=== PATIENT | female | born 1995 | race Caucasian/White ===

== ENCOUNTER 2020-04-05 17:26 | Outpatient (CLI) | payer OTHER ==
[2020-04-05 18:11] LABS: APPEARANCE,URINE CLEAR; BILIRUBIN,URINE NEGATIVE (NEGATIVE); COLOR,URINE STRAW; GLUCOSE, URINE NEGATIVE (NEGATIVE); KETONES,URINE NEGATIVE (NEGATIVE); LEUKOCYTE ESTERASE,URINE MODERATE (NEGATIVE); NITRITE,URINE NEGATIVE (NEGATIVE); PROTEIN,URINE NEGATIVE (NEGATIVE); URINE SPECIFIC GRAVITY 1.002; UROBILINOGEN,URINE NEGATIVE mg/dL (<2.0)
[2020-04-05 18:28] LABS: URINE BARBITURATES SCREEN NEGATIVE; URINE BENZODIAZEPINES SCREEN NEGATIVE; URINE MARIJUANA (THC) SCREEN NEGATIVE; URINE METHADONE SCREEN NEGATIVE; URINE PHENCYCLIDINE SCREEN NEGATIVE
[2020-04-05 18:35] LABS: URINE AMPHETAMINES SCREEN NEGATIVE
[2020-04-05 18:39] LABS: URINE COCAINE SCREEN NEGATIVE
[2020-04-05 19:02] LABS: HEMATOCRIT 30.2 % (36.0-47.0); HEMOGLOBIN 10.9 g/dL (12.0-15.5); MEAN CORPUSCULAR HEMOGLOBIN 30.8 pg (27.0-33.4); MEAN CORPUSCULAR VOLUME 86 fl (80-97); PLATELET COUNT 230 10^3/uL (150-450); RED BLOOD COUNT 3.53 10^6/uL (3.72-5.28); WHITE BLOOD COUNT 9.5 10^3/uL (4.0-10.5)
[2020-04-05 19:33] LABS: ALBUMIN 3.6 g/dL (3.5-5.0); ALKALINE PHOSPHATASE 138 U/L (38-126); ANION GAP 7 (5-19); ASPARTATE AMINO TRANSFERASE 17 U/L (14-36); BILIRUBIN,TOTAL 0.3 mg/dL (0.2-1.3); BLOOD UREA NITROGEN 2 mg/dL (7-20); CALCIUM 9.6 mg/dL (8.4-10.2); CARBON DIOXIDE 25 mmol/L (22-30); CHLORIDE 103 mmol/L (98-107); GLUCOSE 81 mg/dL (75-110); POTASSIUM 3.2 mmol/L (3.6-5.0); TOTAL PROTEIN 6.5 g/dL (6.3-8.2); URIC ACID 4.6 mg/dL (2.5-6.2)
[2020-04-05] MEDS ORDERED: ACETAMINOPHEN WITH CODEINE #3 TABLET PO ONE (19:38)
[2020-04-05] MEDS ORDERED: ACETAMINOPHEN WITH CODEINE #3 TABLET ONE (19:44)
[2020-04-05 20:09] LABS: UR PRO/CREAT RATIO RESULT 1.4 mg/mg (0.0-0.2); URINE CREATININE 12.7 mg/dL (16-327); URINE PROTEIN 18.1 mg/dL (<12)
[2020-04-05] MEDS ORDERED: HYDROXYZINE PAMOATE 50 MG CAPSULE PO ONE (20:29)
[2020-04-05] MEDS ORDERED: HYDROXYZINE PAMOATE 25 MG CAPSULE PO ONE (20:30)
[2020-04-05] MEDS ORDERED: HYDROXYZINE PAMOATE 50 MG CAPSULE ONE (20:31)
--- NOTE | 2020-04-05 22:36 | Non Stress Test Report ---
Non Stress Test Datetime Report Generated by CPN: 04/05/2020 22:36 DEMOGRAPHIC EGA NST: 35.4 INDICATION Indication for Study (NST) Other: labor check MONITORING Monitor Explained: Monitor Explained; Test Explained; Patient Verbalized Understanding Time on Monitor: 04/05/2020 17:51 Time off Monitor: 04/05/2020 21:34 NST Duration: 223 NST INTERVENTIONS NST Interventions: PO Hydration Physician Notified NST: Dr. Zazueta BABY A: [id number] BABY A Movement : Present Contraction Frequency : irregular FHR Baseline : 125-135 Accelerations : 15X15 Decelerations : None Variability : Moderate 6-25bpm NST Review: Meets Criteria for Reactive NST NST Review and Verified By : STEPHANIE Henson Results: Reactive NST REPORT Report Trigger: Send Report
== END 2020-04-05 21:46 | disposition home or self-care (01) ==
LOC: LC 17:26
PROVIDERS: ATTEND Student in an Organized Health Care Education/Training Program
DX: Z34.93 Encounter for supervision of normal pregnancy, unspecified, third trimester (principal)
CPT/HCPCS: 36415; 59025; 80053; 80307; 81005; 82570; 83615; 84156; 84550; 85027

== ENCOUNTER 2020-04-06 20:33 | Outpatient (CLI) | payer OTHER ==
[2020-04-06 21:24] LABS: 24 HOUR URINE PROTEIN RESULT 535 mg/day (42-225)
== END 2020-04-06 22:16 | disposition home or self-care (01) ==
LOC: LC 20:33
PROVIDERS: ATTEND Obstetrics & Gynecology
DX: O16.3 Unspecified maternal hypertension, third trimester (principal); Z3A.35 35 weeks gestation of pregnancy
CPT/HCPCS: 59025; 84156

== ENCOUNTER 2020-04-08 17:48 | Inpatient (IN) | payer OTHER ==
[2020-04-08] MEDS ORDERED: RINGERS SOLUTION,LACTATED 300 ML IV ONE (18:01)
[2020-04-08] MEDS ORDERED: MAG HYDROX/AL HYDROX/SIMETH SUSP 30 ML UDCUP PO PRN (18:01)
[2020-04-08] MEDS ORDERED: ZOLPIDEM TARTRATE 5 MG TABLET PO PRN (18:01)
[2020-04-08] MEDS ORDERED: PENICILLIN G POTASSIUM 5,000,000 UNIT in DEXTROSE 5%-WATER 100 ML IV ONE (18:01)
[2020-04-08] MEDS ORDERED: DINOPROSTONE 10 MG VAGINAL INSERT.SR PV ONE (18:01)
[2020-04-08] MEDS ORDERED: RINGERS SOLUTION,LACTATED 1,000 ML IV PRN ×2 (18:01)
[2020-04-08] MEDS ORDERED: RINGERS SOLUTION,LACTATED 1,000 ML IV ONE (18:01)
[2020-04-08] MEDS ORDERED: ACETAMINOPHEN 325 MG TABLET PO PRN (18:01)
[2020-04-08] MEDS ORDERED: BETAMET ACET/BETAMET NA INJ 6 MG/1 ML ONE (18:20)
[2020-04-08 18:31] LABS: APPEARANCE,URINE CLEAR; BILIRUBIN,URINE NEGATIVE (NEGATIVE); COLOR,URINE YELLOW; GLUCOSE, URINE NEGATIVE (NEGATIVE); KETONES,URINE TRACE mg/dL (NEGATIVE); LEUKOCYTE ESTERASE,URINE MODERATE (NEGATIVE); NITRITE,URINE NEGATIVE (NEGATIVE); PROTEIN,URINE NEGATIVE (NEGATIVE); URINE SPECIFIC GRAVITY 1.005; UROBILINOGEN,URINE NEGATIVE mg/dL (<2.0)
[2020-04-08 18:34] LABS: ABSOLUTE LYMPHOCYTES (AUTO) 1.2 10^3/uL (0.5-4.7); ABSOLUTE MONOCYTES (AUTO) 0.7 10^3/uL (0.1-1.4); ABSOLUTE NEUT (AUTO) 9.9 10^3/uL (1.7-8.2); BASOPHILS % (AUTO) 0.2 % (0-2); EOSINOPHILS % (AUTO) 0.1 % (0-6); HEMATOCRIT 29.9 % (36.0-47.0); HEMOGLOBIN 10.7 g/dL (12.0-15.5); LYMPHOCYTES % (AUTO) 10.2 % (13-45); MEAN CORPUSCULAR HEMOGLOBIN 30.5 pg (27.0-33.4); MEAN CORPUSCULAR HGB CONC 35.8 g/dL (32.0-36.0); MEAN CORPUSCULAR VOLUME 85 fl (80-97); MONOCYTES % (AUTO) 5.6 % (3-13); PLATELET COUNT 264 10^3/uL (150-450); RED BLOOD COUNT 3.51 10^6/uL (3.72-5.28); RED CELL DISTRIBUTION WIDTH 12.9 % (11.5-14.0); SEGMENTED NEUTROPHILS % (AUTO) 83.9 % (42-78); TOTAL CELLS COUNTED % (AUTO) 100 %; WHITE BLOOD COUNT 11.8 10^3/uL (4.0-10.5)
[2020-04-08 18:37] LABS: URINE AMPHETAMINES SCREEN NEGATIVE; URINE BARBITURATES SCREEN NEGATIVE; URINE BENZODIAZEPINES SCREEN NEGATIVE; URINE COCAINE SCREEN NEGATIVE; URINE MARIJUANA (THC) SCREEN NEGATIVE; URINE METHADONE SCREEN NEGATIVE; URINE PHENCYCLIDINE SCREEN NEGATIVE
[2020-04-08 18:52] LABS: ALBUMIN 3.5 g/dL (3.5-5.0); ALKALINE PHOSPHATASE 131 U/L (38-126); ANION GAP 10 (5-19); ASPARTATE AMINO TRANSFERASE 17 U/L (14-36); BILIRUBIN,TOTAL 0.4 mg/dL (0.2-1.3); BLOOD UREA NITROGEN 4 mg/dL (7-20); CALCIUM 9.3 mg/dL (8.4-10.2); CARBON DIOXIDE 23 mmol/L (22-30); CHLORIDE 101 mmol/L (98-107); GLUCOSE 98 mg/dL (75-110); TOTAL PROTEIN 6.3 g/dL (6.3-8.2); URIC ACID 5.3 mg/dL (2.5-6.2)
[2020-04-08] MEDS ORDERED: OXYTOCIN 10 UNIT/ML VIAL ONE (19:29)
[2020-04-08] MEDS ORDERED: MISOPROSTOL 0.2 MG TABLET ONE (19:29)
[2020-04-08] MEDS ORDERED: OXYTOCIN/0.9 % SODIUM CHLORIDE 0 UNIT/0 ML RTUINJ ONE (19:29)
[2020-04-08] MEDS ORDERED: LIDOCAINE 1% INJ-PF (10 MG/ML) 30 ML SDV ONE (19:29)
[2020-04-08 19:42] LABS: ALBUMIN 3.5 g/dL (3.5-5.0); ALKALINE PHOSPHATASE 121 U/L (38-126); ANION GAP 8 (5-19); ASPARTATE AMINO TRANSFERASE 17 U/L (14-36); BILIRUBIN,TOTAL 0.4 mg/dL (0.2-1.3); BLOOD UREA NITROGEN 4 mg/dL (7-20); CALCIUM 9.3 mg/dL (8.4-10.2); CARBON DIOXIDE 25 mmol/L (22-30); CHLORIDE 101 mmol/L (98-107); GLUCOSE 91 mg/dL (75-110); TOTAL PROTEIN 6.2 g/dL (6.3-8.2)
[2020-04-08] MEDS ORDERED: DINOPROSTONE 10 MG VAGINAL INSERT.SR ONE (19:55)
[2020-04-08] MEDS ORDERED: PENICILLIN G POTASSIUM 2,500,000 UNIT in DEXTROSE 5%-WATER 50 ML IV SCH (22:04)
[2020-04-09] MEDS ORDERED: MAG HYDROX/AL HYDROX/SIMETH SUSP 30 ML UDCUP ONE (04:42)
[2020-04-09 06:56] LABS: ABSOLUTE LYMPHOCYTES (AUTO) 0.7 10^3/uL (0.5-4.7); ABSOLUTE MONOCYTES (AUTO) 0.2 10^3/uL (0.1-1.4); ABSOLUTE NEUT (AUTO) 10.5 10^3/uL (1.7-8.2); HEMATOCRIT 32.7 % (36.0-47.0); HEMOGLOBIN 11.6 g/dL (12.0-15.5); LYMPHOCYTES % (AUTO) 6.3 % (13-45); MEAN CORPUSCULAR HEMOGLOBIN 30.4 pg (27.0-33.4); MEAN CORPUSCULAR HGB CONC 35.4 g/dL (32.0-36.0); MEAN CORPUSCULAR VOLUME 86 fl (80-97); PLATELET COUNT 277 10^3/uL (150-450); RED BLOOD COUNT 3.82 10^6/uL (3.72-5.28); RED CELL DISTRIBUTION WIDTH 12.8 % (11.5-14.0); SEGMENTED NEUTROPHILS % (AUTO) 91.7 % (42-78); TOTAL CELLS COUNTED % (AUTO) 100 %; WHITE BLOOD COUNT 11.4 10^3/uL (4.0-10.5)
--- NOTE | 2020-04-09 08:38 | Admission Physical ---
Datetime Report Generated by CPN: 04/09/2020 08:37 CURRENT ADMISSION Chief Complaint: Sent from OB Office for Evaluation and Treatment - Please Specify Indication for Induction: PreEclampsia Indication for Induction- Other: sent from office yesterday for severe range BPs 160s/90s +headache, Brisk DTRs 24*urine >500 earlier this week Admit Impression : , Intrauterine ; No Active Labor Admit Plan: Admit to Unit; Initiate Labor Induction Protocol Admit Plan- Other: Circumvallate Placenta GBS unknown ALLERGIES Medication Allergies: Yes Medication Allergies: clavulanic acid/Hives (04/08/2020); cefprozil/Hives (04/08/2020); amoxicillin/Hives (04/08/2020) Latex: No Latex Allergies OBSTETRICAL HISTORY EDC: 05/06/2020 00:00 : 4 Para: 3 Livin Gestational Diabetes: No Rh Sensitization: No Incompetent Cervix: No RAMONA: No Infertility: No ART Treatment: No Uterine Anomaly: No IUGR: No Hx Previous C/S: No Macrosomia: No Hx Loss/Stillborn: No PIH: No Hx : No Placenta Previa/Abruption: No Depression/PP Depression: Yes PTL/PROM: Yes Post Hemorrhage: No Current Procedures: Ultrasound; NST Obstetrical History Comments: G1-2013, 334.5 weeks, female, vaginal, PROM G2-2016, 39 weeks, male, vaginal, GHTN G3-39 weeks, male, vaginalGHTN G4-Current SEE RECORDS Alcohol: No MEDICAL HISTORY Diabetes: No Blood Transfusion: No Pulmonary Disease (Asthma, TB): No Breast Disease: No Hypertension: Yes Pl Sql [employer] Surgery: No Heart Disease: No Hosp/Surgery: Yes Autoimmune Disorder: No Anesthetic Complications: No Kidney Disease: No Abnormal Pap Smear: Yes Neuro/Epilepsy: No Psychiatric Disorders: No Other Medical Diseases: No Hepatitis/Liver Disease: No Significant Family History: No Varicosities/Phlebitis: No Trauma/Violence : No Thyroid Dysfunction: No Medical History Comments: Hx of HPV, Hx of chlamydia, Childbirth x3, gest HTNx2, PROM INFECTIOUS HISTORY Gonorrhea: No Genital Herpes: No Chlamydia: Yes Tuberculosis: No Syphilis: No Hepatitis: No HIV/AIDS Exposure: No Rash or Viral Illness: No HPV: Yes PHYSICAL EXAM General: Normal HEENT: Normal Neurologic: Normal Thyroid: Normal Heart: Normal Lungs: Normal Breast: Normal Back: Normal Abdomen: Normal Genitourinary Exam: Normal Extremities: Normal DTRs: Normal Pelvic Type: Adequate Physical Exam Comments: 1cm per nursing, cervidil was placed last night Vital Signs: Reviewed FETUS A EGA: 36.1 Monitoring: External US FHR- Baseline: 120 Variability: Moderate 6-25bpm Accelerations: 15X15 FHR Category: Category I Presentation: Vertex Admit Comment: Vancomycin for GBS prophy, culture collected yesterday--pending INFORMED CONSENT Assignment: Amanda Zazueta MD Signature: with User ID: [email or web address] : with User ID: [email or web address]
[2020-04-09] MEDS ORDERED: VANCOMYCIN HCL INJ 1000 MG VIAL ONE ×2 (08:44→22:00)
[2020-04-09] MEDS ORDERED: OXYTOCIN/0.9 % SODIUM CHLORIDE 30 UNIT/500 ML RTUINJ ONE (08:45)
[2020-04-09] MEDS ORDERED: MAGNESIUM SULFATE 4 GM/100 ML RTUPB IV ONE (09:04)
[2020-04-09] MEDS: VANCOMYCIN HCL 1,000 MG in DEXTROSE 5%-WATER 250 ML IV SCH ×2 (09:30→22:18)
[2020-04-09 09:45] LABS: INTERNATIONAL RATION (INR) 0.98
[2020-04-09] MEDS ORDERED: BUPIVACAINE HCL 0.25 % INJ/PF (2.5 MG/1 ML) 30 ML VIAL ONE (09:52)
[2020-04-09] MEDS ORDERED: EPHEDRINE SULFATE INJ 50 MG/1 ML AMPULE ONE (09:52)
[2020-04-09] MEDS ORDERED: FENTANYL/BUPIVACAINE/NS/PF 300 MCG/150 ML RTUINJ EPI ONE (09:52)
[2020-04-09 10:01] LABS: ALBUMIN 3.8 g/dL (3.5-5.0); ALKALINE PHOSPHATASE 153 U/L (38-126); ANION GAP 12 (5-19); ASPARTATE AMINO TRANSFERASE 18 U/L (14-36); BILIRUBIN,TOTAL 0.6 mg/dL (0.2-1.3); BLOOD UREA NITROGEN 3 mg/dL (7-20); CALCIUM 9.4 mg/dL (8.4-10.2); CARBON DIOXIDE 20 mmol/L (22-30); CHLORIDE 103 mmol/L (98-107); GLUCOSE 115 mg/dL (75-110); POTASSIUM 3.4 mmol/L (3.6-5.0); TOTAL PROTEIN 6.7 g/dL (6.3-8.2)
[2020-04-09] MEDS ORDERED: TERBUTALINE SULFATE INJ/PF 1 MG/1 ML SDV SUBCUT ONE (10:05)
[2020-04-09] MEDS ORDERED: TERBUTALINE SULFATE INJ/PF 1 MG/1 ML SDV ONE (10:15)
[2020-04-09 11:14] LABS: CHLAM PCR NOT DETECTED (NOT DETECT)
[2020-04-09] MEDS ORDERED: OXYTOCIN/0.9 % SODIUM CHLORIDE 30 UNIT/500 ML RTUINJ IV PRN ×2 (12:51→23:05)
[2020-04-09] MEDS ORDERED: BETAMET ACET/BETAMET NA INJ 6 MG/1 ML IM ONE (19:43)
[2020-04-09] MEDS ORDERED: BETAMET ACET/BETAMET NA INJ 6 MG/1 ML ONE (19:46)
[2020-04-09] MEDS ORDERED: GLYCERIN/WITCH HAZEL LEAF 1 EACH MED..WIPE TP PRN (23:05)
[2020-04-09] MEDS ORDERED: PROMETHAZINE HCL 25 MG SUPP.RECT PR PRN (23:05)
[2020-04-09] MEDS ORDERED: PROMETHAZINE HCL 25 MG TABLET PO PRN (23:05)
[2020-04-09] MEDS ORDERED: PROMETHAZINE HCL INJ 25 MG/1 ML VIAL IV PRN (23:05)
[2020-04-09] MEDS ORDERED: ACETAMINOPHEN 325 MG TABLET PO PRN (23:05)
[2020-04-09] MEDS ORDERED: ZOLPIDEM TARTRATE 5 MG TABLET PO PRN (23:05)
[2020-04-09] MEDS ORDERED: ACETAMINOPHEN WITH CODEINE #3 TABLET PO PRN ×2 (23:05)
[2020-04-09] MEDS ORDERED: DIPH/PERTUSS(ACELL)/TETANUS VAC/PF 0.5 ML SYR (>=10YO) IM PRN (23:05)
[2020-04-09] MEDS ORDERED: MISOPROSTOL 0.2 MG TABLET PR PRN (23:05)
[2020-04-09] MEDS ORDERED: NA PHOS,M-B/NA PHOS,DI-BA (ADULT) 133 ML ENEMA PR PRN (23:05)
[2020-04-09] MEDS ORDERED: BENZOCAINE/MENTHOL AEROSOL SPRAY 56 ML TOP PRN (23:05)
[2020-04-09] MEDS ORDERED: MEASLES,MUMPS&RUBELLA VACC/PF 0.5 ML VIAL SUBCUT PRN (23:05)
[2020-04-09] MEDS ORDERED: DIPHENHYDRAMINE HCL 25 MG CAPSULE PO PRN (23:05)
[2020-04-09] MEDS ORDERED: DIBUCAINE 1% OINTMENT 28 GM TP PRN (23:05)
[2020-04-09] MEDS ORDERED: PSEUDOEPHEDRINE HCL 30 MG TABLET PO PRN (23:05)
[2020-04-09] MEDS ORDERED: MAGNESIUM HYDROXIDE SUSP 30 ML UDCUP PO PRN (23:05)
[2020-04-10] MEDS: FAMOTIDINE 20 MG TABLET PO SCH ×3 (02:40→21:39)
[2020-04-10] MEDS: IBUPROFEN 800 MG TABLET PO SCH ×3 (05:43→21:38)
[2020-04-10 07:53] LABS: HEMATOCRIT 30.7 % (36.0-47.0); HEMOGLOBIN 10.8 g/dL (12.0-15.5); MEAN CORPUSCULAR HEMOGLOBIN 29.7 pg (27.0-33.4); MEAN CORPUSCULAR VOLUME 85 fl (80-97); PLATELET COUNT 331 10^3/uL (150-450); RED BLOOD COUNT 3.62 10^6/uL (3.72-5.28); WHITE BLOOD COUNT 17.8 10^3/uL (4.0-10.5)
[2020-04-10] MEDS: FERROUS SULFATE 325 MG TABLET PO SCH ×2 (09:20→18:06)
[2020-04-10] MEDS: PRENATAL VITAMIN W DHA CAPSULE PO SCH (09:20)
[2020-04-10] MEDS: SENNOSIDES/DOCUSATE 8.6-50 MG 1 EACH TABLET PO SCH (09:20)
[2020-04-10] MEDS: DOCUSATE SODIUM 100 MG CAPSULE PO SCH ×2 (09:20→18:06)
--- NOTE | 2020-04-10 09:56 | PDOC PROGRESS REPORT ---
Subjective-OB Progress Note for:: 04/10/20 Subjective: Pt doing well, no concerns. She reports light bleeding, reg diet and voiding without difficulty. Physical Exam (OB) Vital Signs: Temp Pulse Resp BP Pulse Ox 97.8 F 65 18 140/81 H 100 04/10/20 07:26 04/10/20 08:05 04/10/20 07:26 04/10/20 08:05 04/10/20 07:26 Intake & Output 04/09/20 04/10/20 04/11/20 06:59 06:59 06:59 Intake Total 250 Balance 250 Weight 89.6 kg - PIH/Pre-Eclampsia DTR's: 2 + Clonus: Negative Headache: Absent Epigastric Pain: No Visual Changes: No - Lochia Lochia Amount: Small 10-25 ml Lochia Color: Rubra/Red - Abdomen Description: Soft Hernia Present: No Fundal Description: Firm, Midline Fundal Height: u/3 - u/4 Objective-Diagnostic Laboratory: 04/10/20 07:30 04/09/20 09:26 04/09/20 04/10/20 09:26 07:30 WBC 17.8 H RBC 3.62 L Hgb 10.8 L Hct 30.7 L MCV 85 MCH 29.7 MCHC 35.0 RDW 13.0 Plt Count 331 Sodium 134.7 L Potassium 3.4 L Chloride 103 Carbon Dioxide 20 L Anion Gap 12 BUN 3 L Creatinine 0.43 L Est GFR ( Amer) > 60 Glucose 115 H Calcium 9.4 Total Bilirubin 0.6 AST 18 Alkaline Phosphatase 153 H Total Protein 6.7 Albumin 3.8 Assessment and Plan(PN) - Assessment and Plan (1) Breech malpresentation successfully converted to cephalic presentation Qualifiers: Fetus number: single or unspecified fetus Qualified Code(s): O32.1XX0 - Maternal care for breech presentation, not applicable or unspecified Is this a current diagnosis for this admission?: Yes (2) Severe pre-eclampsia Qualifiers: Trimester: third trimester Qualified Code(s): O14.13 - Severe pre- eclampsia, third trimester Is this a current diagnosis for this admission?: Yes (3) Unstable lie of fetus Qualifiers: Fetus number: single or unspecified fetus Qualified Code(s): O32.0XX0 - M aternal care for unstable lie, not applicable or unspecified Is this a current diagnosis for this admission?: Yes - Time Spent with Patient Time with patient: Less than 15 minutes Medications reviewed and adjusted accordingly: Yes - Disposition Anticipated Discharge: Home Within: within 24 hours
[2020-04-11] MEDS: IBUPROFEN 800 MG TABLET PO SCH ×3 (05:37→21:20)
[2020-04-11] MEDS ORDERED: NIFEDIPINE 30 MG TAB.ER.24 PO SCH (09:00)
[2020-04-11] MEDS: SENNOSIDES/DOCUSATE 8.6-50 MG 1 EACH TABLET PO SCH (09:23)
[2020-04-11] MEDS: FERROUS SULFATE 325 MG TABLET PO SCH ×2 (09:23→17:11)
[2020-04-11] MEDS: DOCUSATE SODIUM 100 MG CAPSULE PO SCH ×2 (09:23→17:11)
[2020-04-11] MEDS: FAMOTIDINE 20 MG TABLET PO SCH ×2 (09:24→21:20)
[2020-04-11] MEDS: PRENATAL VITAMIN W DHA CAPSULE PO SCH (09:24)
--- NOTE | 2020-04-11 10:57 | PDOC PROGRESS REPORT ---
Subjective-OB Progress Note for:: 04/11/20 Subjective: Pt woke up this am with headache, had elevated BPs in severe range. Orders received from Dr. Fernandez for BP meds. She is stressed b/c baby is still in NICU. Has a hx of PPD and her mother is concerned about her having it again. She would like to start on something now that is safe for . States she had SI on Zoloft previously so she does not want to try that. Agrees to try Paxil as it is in same category for safety. Bleeding is light, reg diet, pumping. Physical Exam (OB) Vital Signs: Temp Pulse Resp BP Pulse Ox 97.4 F 83 18 125/84 100 04/11/20 09:12 04/11/20 09:12 04/11/20 09:12 04/11/20 09:12 04/11/20 09:12 Intake & Output 04/10/20 04/11/20 04/12/20 06:59 06:59 06:59 Intake Total 250 Balance 250 - PIH/Pre-Eclampsia DTR's: 2 + Clonus: Negative Headache: Absent Epigastric Pain: No Visual Changes: No - Lochia Lochia Amount: Small 10-25 ml Lochia Color: Rubra/Red - Abdomen Description: Soft Hernia Present: No Fundal Description: Firm, Midline Fundal Height: u/u - u/2 Objective-Diagnostic Laboratory: 04/10/20 07:30 04/09/20 09:26 Assessment and Plan(PN) - Assessment and Plan (1) Breech malpresentation successfully converted to cephalic presentation Qualifiers: Fetus number: single or unspecified fetus Qualified Code(s): O32.1XX0 - Maternal care for breech presentation, not applicable or unspecified Is this a current diagnosis for this admission?: Yes Plan: had ECV per Dr. Zazueta (2) Severe pre-eclampsia Qualifiers: Trimester: third trimester Qualified Code(s): O14.13 - Severe pre- eclampsia, third trimester Is this a current diagnosis for this admission?: Yes (3) Unstable lie of fetus Qualifiers: Fetus number: single or unspecified fetus Qualified Code(s): O32.0XX0 - Maternal care for unstable lie, not applicable or unspecified Is this a current diagnosis for this admission?: Yes (4) Vaginal delivery Is this a current diagnosis for this admission?: Yes (5) Anxiety and depression Is this a current diagnosis for this admission?: Yes Plan: start on Paxil - Time Spent with Patient Time with patient: Less than 15 minutes Medications reviewed and adjusted accordingly: Yes - Disposition Anticipated Discharge: Home Within: within 24 hours
[2020-04-11] MEDS ORDERED: PAROXETINE HCL 20 MG TABLET PO ONE (11:30)
[2020-04-11] MEDS ORDERED: NIFEDIPINE 30 MG TAB.ER.24 PO ONE (17:00)
[2020-04-12] MEDS: IBUPROFEN 800 MG TABLET PO SCH (05:23)
[2020-04-12] MEDS: FERROUS SULFATE 325 MG TABLET PO SCH (09:27)
[2020-04-12] MEDS: SENNOSIDES/DOCUSATE 8.6-50 MG 1 EACH TABLET PO SCH (09:27)
[2020-04-12] MEDS: DOCUSATE SODIUM 100 MG CAPSULE PO SCH (09:27)
[2020-04-12] MEDS: FAMOTIDINE 20 MG TABLET PO SCH (09:28)
[2020-04-12] MEDS: PRENATAL VITAMIN W DHA CAPSULE PO SCH (09:28)
[2020-04-12] MEDS ORDERED: NIFEDIPINE 30 MG TAB.ER.24 PO SCH (10:00)
[2020-04-12] MEDS ORDERED: PAROXETINE HCL 20 MG TABLET PO SCH (10:00)
--- NOTE | 2020-04-12 11:17 | PDOC DISCHARGE SUMMARY ---
Impression - Admit/DC Date/PCP Admission Date/Primary Care Provider: 04/08/20 17:48 DEION NUÑEZ MD Discharge Date: 04/12/20 - Discharge Diagnosis (1) Anxiety and depression Is this a current diagnosis for this admission?: Yes (2) Vaginal delivery Is this a current diagnosis for this admission?: Yes (3) Severe pre-eclampsia Is this a current diagnosis for this admission?: Yes - Additional Information Discharge Diet: Regular Discharge Activity: Balance Activity w/Rest Referrals: [facility] [Provider Group] (Please call [facility] for a 1 week f/u for blood pressure check.) Prescriptions: Ibuprofen [Motrin 800 mg Tablet] 800 mg PO Q8HP PRN #60 tablet PRN Reason: Paroxetine HCl [Paxil 20 mg Tablet] 20 mg PO DAILY #30 tablet Nifedipine [Procardia XL 30 mg Tablet] 30 mg PO BID #60 tab.er.24 Home Medications: Vitamin [-U Multiple Vitamin Capsule] 1 cap PO DAILY 04/05/20 Ibuprofen [Motrin 800 mg Tablet] 800 mg PO Q8HP PRN #60 tablet 04/12/20 Nifedipine [Procardia XL 30 mg Tablet] 30 mg PO BID #60 tab.er.24 04/12/20 Paroxetine HCl [Paxil 20 mg Tablet] 20 mg PO DAILY #30 tablet 04/12/20 Results Laboratory Results: WBC 17.8 10^3/uL (4.0-10.5) H 04/10/20 07:30 RBC 3.62 10^6/uL (3.72-5.28) L 04/10/20 07:30 Hgb 10.8 g/dL (12.0-15.5) L 04/10/20 07:30 Hct 30.7 % (36.0-47.0) L 04/10/20 07:30 MCV 85 fl (80-97) 04/10/20 07:30 MCH 29.7 pg (27.0-33.4) 04/10/20 07:30 MCHC 35.0 g/dL (32.0-36.0) 04/10/20 07:30 RDW 13.0 % (11.5-14.0) 04/10/20 07:30 Plt Count 331 10^3/uL (150-450) 04/10/20 07:30 Lymph % (Auto) 6.3 % (13-45) L 04/09/20 06:40 [place] % (Auto) 2.0 % (3-13) L 04/09/20 06:40 Eos % (Auto) 0.0 % (0-6) 04/09/20 06:40 Baso % (Auto) 0.0 % (0-2) 04/09/20 06:40 Absolute Neuts (auto) 10.5 10^3/uL (1.7-8.2) H 04/09/20 06:40 Absolute Lymphs (auto) 0.7 10^3/uL (0.5-4.7) 04/09/20 06:40 Absolute Monos (auto) 0.2 10^3/uL (0.1-1.4) 04/09/20 06:40 Absolute Eos (auto) 0.0 10^3/uL (0.0-0.6) 04/09/20 06:40 Absolute Basos (auto) 0.0 10^3/uL (0.0-0.2) 04/09/20 06:40 Seg Neutrophils % 91.7 % (42-78) H 04/09/20 06:40 PT 13.0 SEC (11.4-15.4) 04/09/20 09:26 INR 0.98 04/09/20 09:26 APTT 25.0 SEC (23.5-35.8) 04/09/20 09:26 Sodium 134.7 mmol/L (137-145) L 04/09/20 09:26 Potassium 3.4 mmol/L (3.6-5.0) L 04/09/20 09:26 Chloride 103 mmol/L (98-107) 04/09/20 09:26 Carbon Dioxide 20 mmol/L (22-30) L 04/09/20 09:26 Anion Gap 12 (5-19) 04/09/20 09:26 BUN 3 mg/dL (7-20) L 04/09/20 09:26 Creatinine 0.43 mg/dL (0.52-1.25) L 04/09/20 09:26 Est GFR ( Amer) > 60 (>60) 04/09/20 09:26 Est GFR (MDRD) Non-Af > 60 (>60) 04/09/20 09:26 Glucose 115 mg/dL (75-110) H 04/09/20 09:26 Uric Acid 5.3 mg/dL (2.5-6.2) 04/08/20 18:20 Calcium 9.4 mg/dL (8.4-10.2) 04/09/20 09:26 Total Bilirubin 0.6 mg/dL (0.2-1.3) 04/09/20 09: Direct Bilirubin 0.0 mg/dL (0.0-0.4) 04/09/20 09:26 Neonat Total Bilirubin Not Reportable 04/09/20 09: Neonat Direct Bilirubin Not Reportable 04/09/20: Neonat Indirect Bili Not Reportable 04/09/20:26 AST 18 U/L (14-36) 04/09/20 09: ALT 9 U/L (<35) 04/09/20 09: Alkaline Phosphatase 153 U/L (38-126) H 04/09/20 09:26 Total Protein 6.7 g/dL (6.3-8.2) 04/09/20 09: Albumin 3.8 g/dL (3.5-5.0) 04/09/20 09:26 Urine Color YELLOW 04/08/20 18:00 Urine Appearance CLEAR 04/08/20 18:00 Urine pH 7.0 (5.0-9.0) 04/08/20 18:00 Ur Specific [place] 1.005 04/08/20 18:00 Urine Protein NEGATIVE mg/dL (NEGATIVE) 04/08/20 18:00 Urine Glucose (UA) NEGATIVE mg/dL (NEGATIVE) 04/08/20 18:00 Urine Ketones TRACE mg/dL (NEGATIVE) H 04/08/20 18:00 Urine Blood NEGATIVE (NEGATIVE) 04/08/20 18:00 Urine Nitrite NEGATIVE (NEGATIVE) 04/08/20 18:00 Urine Bilirubin NEGATIVE (NEGATIVE) 04/08/20 18:00 Urine Urobilinogen NEGATIVE mg/dL (<2.0) 04/08/20 18:00 Ur Leukocyte Esterase MODERATE (NEGATIVE) H 04/08/20 18:00 Urine WBC (Auto) 5 /HPF 04/08/20 18:00 Urine Bacteria (Auto) 1+ /HPF 04/08/20 18:00 Squamous Epi Cells Auto 6 /HPF 04/08/20 18:00 U Non-Squamous Epis Auto <1 /HPF 04/08/20 18:00 Urine Mucus (Auto) RARE /LPF 04/08/20 18:00 Urine Ascorbic Acid NEGATIVE (NEGATIVE) 04/08/20 18:00 Urine Opiates Screen NEGATIVE 04/08/20 18:00 Urine Methadone Screen NEGATIVE 04/08/20 18:00 Ur Barbiturates Screen NEGATIVE 04/08/20 18:00 Ur Phencyclidine Scrn NEGATIVE 04/08/20 18:00 Ur Amphetamines Screen NEGATIVE 04/08/20 18:00 U Benzodiazepines Scrn NEGATIVE 04/08/20 18:00 Urine Cocaine Screen NEGATIVE 04/08/20 18:00 U Marijuana (THC) Screen NEGATIVE 04/08/20 18:00 RPR NONREACTIVE (NONREACTIVE) 04/08/20 18:20 Chlamydia DNA (PCR) NOT DETECTED (NOT DETECT) 04/09/20 09:16 N.gonorrhoeae DNA (PCR) NOT DETECTED (NOT DETECT) 04/09/20 09:16 Blood Type A POSITIVE 04/08/20 18:20 Antibody Screen NEGATIVE 04/08/20 18:20 Plan Plan of Treatment: follow up in one week at [facility] for blood pressure check
[2020-04-12 11:32] VITALS: BP 132/88
== END 2020-04-12 12:12 | disposition home or self-care (01) | DRG 807 ==
LOC: LR 17:48 → 2S 04-10 01:13
PROVIDERS: ADMIT Obstetrics & Gynecology Gynecology; ATTEND Student in an Organized Health Care Education/Training Program
PROC: 10E0XZZ Delivery of Products of Conception, External Approach (ICD-10-PCS; principal; 2020-04-09)
DX: O14.14 Severe pre-eclampsia complicating childbirth (principal); Z37.0 Single live birth; O60.14X0 Preterm labor third trimester with preterm delivery third trimester, not applicable or unspecified; O32.6XX0 Maternal care for compound presentation, not applicable or unspecified; O99.344 Other mental disorders complicating childbirth; F32.9 Major depressive disorder, single episode, unspecified; F41.9 Anxiety disorder, unspecified; Z3A.36 36 weeks gestation of pregnancy; Z86.19 Personal history of other infectious and parasitic diseases; Z79.899 Other long term (current) drug therapy; Z88.0 Allergy status to penicillin
CPT/HCPCS: 1967; 36415; 80053; 80307; 81001; 84550; 85025; 85027; 85610; 85730; 86592; 86850; 86900; 86901; 87070; 87081; 87491; 87591; 94760; 96372; J0702; J2540; J2590; J3010; J3105; J3370; J3490; J7060